=== PATIENT | female | born 1960 | race Caucasian/White ===

== ENCOUNTER → 2021-06-24 15:09 | Outpatient (CLI) | payer OTHER, SELFPAY ==
--- NOTE | 2021-06-24 15:21 | DI.MG.S_ITS ---
BILATERAL DIGITAL SCREENING MAMMOGRAM 3D/2D WITH CAD: 06/24/2021 CLINICAL: Routine screening. Comparison is made to exams dated: 03/25/2020 mammogram, 02/07/2019 mammogram, and 02/07/2018 mammogram - outside facility. The tissue of both breasts is predominantly fatty. Current study was also evaluated with a Computer Aided Detection (CAD) system. No significant masses, calcifications, or other findings are seen in either breast. There has been no significant interval change. IMPRESSION: NEGATIVE There is no mammographic evidence of malignancy. A 1 year screening mammogram is recommended. This exam was interpreted at Station ID: [id number]. NOTE: For mammograms, a report in lay terms will be sent to the patient. Approximately 15% of breast malignancies will not be visualized mammographically. In the management of a palpable breast mass, a negative mammogram must not discourage biopsy of a clinically suspicious lesion. Electronically Signed By: Humberto Agee M.D., jr/rosibel:06/24/2021 15:41:30 letter sent: Normal Exam ACR BI-RADS Category 1: Negative 3341F
== END ==
PROVIDERS: PCP Physician Assistant; Referring Provider Physician Assistant; Visit Provider Physician Assistant
DX: Z12.31 Encounter for screening mammogram for malignant neoplasm of breast (principal)
CPT/HCPCS: 77063; 77067

== ENCOUNTER 2021-07-18 12:35 | Emergency (ER) | payer OTHER, SELFPAY ==
[2021-07-18 12:40] VITALS: BP 177/95; PULSE 84; RESP 16; TEMP 36.7; O2SAT 99; BMI 33.8
[2021-07-18 13:04] LABS: Prothrombin Time 11.1 SECONDS (10.1-12.7)
[2021-07-18 13:06] LABS: Add Manual Diff / Slide Review NO; Basophils Absolute Auto 0 /uL (0-100); Basophils Percent Auto 0.4 % (0-2); Eosinophils Absolute Auto 100 /uL (0-450); Eosinophils Percent Auto 1.5 % (2-4); Hematocrit 39.7 % (36-46); Hemoglobin 13.5 g/dL (12.0-16.0); Lymphocytes Absolute Auto 1700 /uL (1100-4500); Lymphocytes Percent Auto 33.5 % (25-40); Mean Corpuscular HGB Conc 33.9 % (30-36); Mean Corpuscular Hemoglobin 32.8 PG (26-34); Mean Corpuscular Volume 96.6 fL (80-100); Monocytes Absolute Auto 500 /uL (0-900); Monocytes Percent Auto 9.9 % (3-14); Neutrophils Absolute Auto 2800 /uL (1500-7000); Neutrophils Percent Auto 54.7 % (50-75); Platelet Count 273 X10^3/uL (150-400); Red Blood Cell Count 4.12 X10^6/uL (4.0-5.2); Red Cell Distribution Width 13.6 % (11.6-14.8); White Blood Cell Count 5.1 X10^3/uL (4.5-11.0)
[2021-07-18 13:09] LABS: Alanine Aminotransferase 16 IU/L (<35); Albumin 4.5 g/dL (3.5-5.0); Albumin Globulin Ratio 1.2 (1.0-2.8); Alkaline Phosphatase 81 U/L (38-126); Aspartate Aminotransferase 28 IU/L (14-36); Bilirubin Total 0.6 mg/dL (0.2-1.3); Blood Urea Nitrogen 15 mg/dL (7-17); Calcium 9.7 mg/dL (8.4-10.2); Carbon Dioxide 32 mmol/L (22-32); Chloride 102 mmol/L (98-107); Estimated Glomerular Filt Rate > 60.0 mL/min (>60); Globulin 3.8 g/dL (1.7-4.1); Glucose 108 mg/dL (80-110); HEMOLYSIS < 15 (0-50); Potassium 3.6 mmol/L (3.4-5.1); Sodium 140 mmol/L (137-145); Total Protein 8.3 g/dL (6.3-8.2)
[2021-07-18 13:10] VITALS: BP 145/74; PULSE 78; RESP 18; O2SAT 97
[2021-07-18 13:30] VITALS: BP 132/74; PULSE 75; O2SAT 97
[2021-07-18 13:40] LABS: PTT Partial Thromboplastin Tim 29 SECONDS (26.4-36.2)
[2021-07-18 14:00] VITALS: BP 140/70; PULSE 72; O2SAT 97
--- NOTE | 2021-07-18 14:13 | ED.FEMALEGU ---
HPI - Female Genitourinary General Chief complaint: Vaginal Bleeding Stated complaint: Heavy Vaginal Bleeding Time Seen by Provider: 07/18/21 13:29 Source: patient Mode of arrival: Ambulatory Limitations: no limitations History of Present Illness HPI Narrative: This is a 61-year-old female who comes in with complaint of heavy vaginal bleeding. Patient states that 3 weeks ago she had changed from mg of estradiol and 100 mg of progesterone 10 bio identical hormones. She states she started having bleeding which has been increasing. She has been switched to progesterone 400 mg but is going through a tampon every 2 hours. Patient states that she had an ultrasound several years ago with her OBGYN in [place]. She is establishing locally with a Dr. Minor but has not seen them and has an appointment this coming week. Patient states she is supposed to travel in the next week and is hoping to get her bleeding under better control. Patient states she does have a history of Gmxfs-Mlltnawsc-Ribgh. She has felt slightly dizzy after her taking a long walk. She denies other symptoms besides occasional hot flashes. Related Data Previous Rx's Medication Instructions Recorded medroxyprogesterone 10 mg tablet 10 mg PO BID 10 Days #20 tab 07/18/21 Review of Systems Review of Systems ROS Unobtainable: All systems reviewed & are unremarkable except as noted in HPI and below Patient History Substance Use Type: does not use Exam Narrative Exam Narrative: GENERAL: Alert and oriented x three, female in mild distress. HEENT: Head normocephalic, atraumatic, EOMI, pupils reactive, face symmetric, moist mucous membranes NECK: Supple, full range of motion CARDIOVASCULAR: Regular rate and rhythm without murmurs, rubs or gallops. RESPIRATORY: Breath sounds equal bilaterally, no wheezes rales or rhonchi. ABDOMEN: Soft, nontender. Normoactive bowel sounds all 4 quadrants. No guarding or rebound, rigidity, no mass : No CVA tenderness EXTREMITIES: Normal range of motion, no clubbing or edema. Neurovascularly intact NEUROLOGICAL: Cranial nerves II through XII grossly intact. Moving all extremities. Patient ambulates without issue. SKIN: Warm, dry, no petechiae, no rashes or lesions. Initial Vital Signs Initial Vital Signs: Vital Signs Temperature 98.1 F 07/18/21 12:40 Pulse Rate 84 07/18/21 12:40 Respiratory Rate 16 07/18/21 12:40 Blood Pressure 177/95 H 07/18/21 12:40 Pulse Oximetry 99 07/18/21 12:40 Course Orders Ordered: ED Orders 07/18/21 12:49 Complete Blood Count AUTO DIFF Stat Comprehensive Metabolic Panel Stat PT [Prothrombin Time INR] Stat PTT [Partial Thromboplastin Time] Stat Consultations Consultation #1: Dr. Garcia, emergency specialist. We discussed patient politely refused gynecologic ultrasound and plans to have it as an outpatient. She has a prior from 2013 that she brought her with her but none since. We discussed her medication currently. He suggests Provera 10 mg b.i.d. times 7-10 days. If patient seems responsible and willing to follow-up for outpatient ultrasound she does need this but can be done as outpatient. Time: 14:27 Vital Signs Vital signs: Vital Signs - 8 hr 07/18/21 13:10 07/18/21 13:30 07/18/21 14:00 Pulse Rate 78 75 72 Respiratory Rate 18 Blood Pressure 145/74 H 132/74 140/70 Pulse Oximetry 97 97 97 MDM - Female Genitourinary Lab Data Result diagrams: 07/18/21 12:49 07/18/21 12:49 Labs: Lab Results 07/18/21 07/18/21 07/18/21 Range/Units 12:49 12:49 12:49 WBC 5.1 (4.5-11.0) X10^3/uL RBC 4.12 (4.0-5.2) X10^6/uL Hgb 13.5 (12.0-16.0) g/dL Hct 39.7 (36-46) % MCV 96.6 (80-100) fL MCH 32.8 (26-34) PG MCHC 33.9 (30-36) % RDW 13.6 (11.6-14.8) % Plt Count 273 (150-400) X10^3/uL Neut % (Auto) 54.7 (50-75) % Lymph % (Auto) 33.5 (25-40) % Green % (Auto) 9.9 (3-14) % Eos % (Auto) 1.5 L (2-4) % Baso % (Auto) 0.4 (0-2) % Neut # (Auto) 2800 (3583-0046) /uL Lymph # (Auto) 1700 (5695-7534) /uL [place] # (Auto) 500 (0-900) /uL Eos # (Auto) 100 (0-450) /uL Baso # (Auto) 0 (0-100) /uL PT 11.1 (10.1-12.7) SECONDS INR 1.0 (0.9-1.3) APTT (26.4-36.2) SECONDS Sodium 140 (137-145) mmol/L Potassium 3.6 (3.4-5.1) mmol/L Chloride 102 (98-107) mmol/L Carbon Dioxide 32 (22-32) mmol/L BUN 15 (7-17) mg/dL Creatinine 0.79 (0.52-1.04) mg/dL Estimated GFR > 60.0 (>60) mL/min BUN/Creatinine Ratio 19.0 (6-22) Glucose 108 (80-110) mg/dL Calcium 9.7 (8.4-10.2) mg/dL Total Bilirubin 0.6 (0.2-1.3) mg/dL AST 28 (14-36) IU/L ALT 16 (<35) IU/L Alkaline Phosphatase 81 (38-126) U/L Total Protein 8.3 H (6.3-8.2) g/dL Albumin 4.5 (3.5-5.0) g/dL Globulin 3.8 (1.7-4.1) g/dL Albumin/Globulin Ratio 1.2 (1.0-2.8) 07/18/21 Range/Units 12:49 WBC (4.5-11.0) X10^3/uL RBC (4.0-5.2) X10^6/uL Hgb (12.0-16.0) g/dL Hct (36-46) % MCV (80-100) fL MCH (26-34) PG MCHC (30-36) % RDW (11.6-14.8) % Plt Count (150-400) X10^3/uL Neut % (Auto) (50-75) % Lymph % (Auto) (25-40) % Green % (Auto) (3-14) % Eos % (Auto) (2-4) % Baso % (Auto) (0-2) % Neut # (Auto) (5304-8317) /uL Lymph # (Auto) (7760-0906) /uL [place] # (Auto) (0-900) /uL Eos # (Auto) (0-450) /uL Baso # (Auto) (0-100) /uL PT (10.1-12.7) SECONDS INR (0.9-1.3) APTT 29 (26.4-36.2) SECONDS Sodium (137-145) mmol/L Potassium (3.4-5.1) mmol/L Chloride (98-107) mmol/L Carbon Dioxide (22-32) mmol/L BUN (7-17) mg/dL Creatinine (0.52-1.04) mg/dL Estimated GFR (>60) mL/min BUN/Creatinine Ratio (6-22) Glucose (80-110) mg/dL Calcium (8.4-10.2) mg/dL Total Bilirubin (0.2-1.3) mg/dL AST (14-36) IU/L ALT (<35) IU/L Alkaline Phosphatase (38-126) U/L Total Protein (6.3-8.2) g/dL Albumin (3.5-5.0) g/dL Globulin (1.7-4.1) g/dL Albumin/Globulin Ratio (1.0-2.8) MDM Narrative Medical decision making narrative: This is a 61-year-old female with persistent vaginal bleeding that has been heavy since switching from her regular estradiol and progesterone to bioidentical call hormones. Patient has tried progesterone 400 without any improvement. Discussed with OBGYN who recommends pelvic ultrasound which patient had already politely refused and plans to get his outpatient. And also suggested 10 mg for Provera b.i.d. times 7-10 days. Patient is otherwise asymptomatic with stable vital signs and normal hemoglobin. Discharge Plan Departure Patient Disposition: Home Clinical Impression: Vaginal bleeding Instructions: DI for Vaginal Bleeding Activity Restrictions/Additional Instructions: I suspect that your vaginal bleeding is secondary to your recent hormone replacement medication changes but you do pelvic ultrasound to fully evaluate the uterus and the endometrial lining. Follow-up with your new emergency specialist Dr. Minor to arrange this. Referral is included for our local CERTIFIED REGISTERED NURSE PRACTITIONER if you prefer. You may take Provera 10 mg, twice daily for the next 7-10 days. Stop your other hormone replacement. Prescription sent to [email or web address] in [place]. Please return for lightheadedness or passing, chest pain or shortness of breath, persistent vomiting, rapidly worsening bleeding, going through more than 1 better to about an hour, abdominal pain or other new or concerning symptoms. Prescriptions: New medroxyprogesterone 10 mg tablet 10 mg PO BID 10 Days Qty: 20 0RF Referrals: Vicky Ybarra PA-C [Primary Care Provider] - Donte Garcia MD [Physician] -
== END 2021-07-18 14:48 | disposition home or self-care (01) ==
PROVIDERS: Emergency Provider Emergency Medicine; PCP Physician Assistant
DX: N93.9 Abnormal uterine and vaginal bleeding, unspecified (principal)
CPT/HCPCS: 36415; 80053; 85025; 85610; 85730; 99283

== ENCOUNTER → 2022-03-29 09:40 | Outpatient (CLI) | payer OTHER, SELFPAY ==
[2022-03-29 10:41] LABS: Add Manual Diff / Slide Review NO; Basophils Absolute Auto 0 /uL (0-100); Basophils Percent Auto 0.6 % (0-2); Eosinophils Absolute Auto 100 /uL (0-450); Eosinophils Percent Auto 2.2 % (2-4); Hematocrit 40.2 % (36-46); Hemoglobin 13.6 g/dL (12.0-16.0); Lymphocytes Absolute Auto 1500 /uL (1100-4500); Lymphocytes Percent Auto 29.9 % (25-40); Mean Corpuscular HGB Conc 33.7 % (30-36); Mean Corpuscular Volume 97.8 fL (80-100); Monocytes Absolute Auto 500 /uL (0-900); Monocytes Percent Auto 10.6 % (3-14); Neutrophils Absolute Auto 2900 /uL (1500-7000); Neutrophils Percent Auto 56.7 % (50-75); Platelet Count 274 X10^3/uL (150-400); Red Blood Cell Count 4.11 X10^6/uL (4.0-5.2); Red Cell Distribution Width 13.2 % (11.6-14.8); White Blood Cell Count 5.1 X10^3/uL (4.5-11.0)
[2022-03-29 10:58] LABS: Alanine Aminotransferase 16 IU/L (<35); Albumin Globulin Ratio 1.1 (1.0-2.8); Alkaline Phosphatase 89 U/L (38-126); Aspartate Aminotransferase 25 IU/L (14-36); BUN Creatinine Ratio 16.7 (6-22); Bilirubin Total 0.5 mg/dL (0.2-1.3); Blood Urea Nitrogen 12 mg/dL (7-17); Calcium 8.8 mg/dL (8.4-10.2); Carbon Dioxide 28 mmol/L (22-32); Chloride 100 mmol/L (98-107); Cholesterol 258 mg/dL (140-199); Estimated Glomerular Filt Rate > 60 mL/min (>60); Globulin 3.6 g/dL (1.7-4.1); Glucose 104 mg/dL (80-110); HDL Cholesterol 65 mg/dL (40-60); HEMOLYSIS < 15 (0-50); LDL Cholesterol Calculated 152 mg/dL (<100); Sodium 136 mmol/L (137-145); Total Protein 7.6 g/dL (6.3-8.2); Triglycerides 206 mg/dL (35-150)
== END ==
PROVIDERS: PCP Obstetrics & Gynecology; Referring Provider Internal Medicine Cardiovascular Disease; Visit Provider Internal Medicine Cardiovascular Disease
DX: Z13.89 Encounter for screening for other disorder (principal); Z13.1 Encounter for screening for diabetes mellitus; E88.81 Metabolic syndrome and other insulin resistance; E78.5 Hyperlipidemia, unspecified
CPT/HCPCS: 36415; 80053; 80061; 85025

== ENCOUNTER → 2022-07-15 11:42 | Outpatient (CLI) | payer OTHER, SELFPAY ==
--- NOTE | 2022-07-15 | DI.MG.S_ITS ---
BILATERAL DIGITAL SCREENING MAMMOGRAM 3D/2D WITH CAD: 07/15/2022 CLINICAL: Routine screening. Comparison is made to exams dated: 06/24/2021 mammogram - [facility], 03/25/2020 mammogram, and 02/07/2019 mammogram - outside facility. There are scattered areas of fibroglandular density in both breasts (category b / 25%-50% glandular tissue). Current study was also evaluated with a Computer Aided Detection (CAD) system. No significant masses, calcifications, or other findings are seen in either breast. There has been no significant interval change. IMPRESSION: NEGATIVE There is no mammographic evidence of malignancy. A 1 year screening mammogram is recommended. Based on the Tyrer Cuzick model (a risk assessment model) the patient's lifetime risk is 5.3% and her 10 year risk is 2.4%. According to the ACR, ACS, and NCCN guidelines, an annual breast MRI exam along with mammogram is recommended if the patient's lifetime risk is 20% or greater. This exam was interpreted at Station ID: [id number]. NOTE: For mammograms, a report in lay terms will be sent to the patient. Approximately 15% of breast malignancies will not be visualized mammographically. In the management of a palpable breast mass, a negative mammogram must not discourage biopsy of a clinically suspicious lesion. Electronically Signed By: Luis elkins/rosibel:07/15/2022 15:58:47 letter sent: Normal Exam ACR BI-RADS Category 1: Negative 3341F
== END ==
PROVIDERS: PCP Obstetrics & Gynecology; Referring Provider Obstetrics & Gynecology; Visit Provider Obstetrics & Gynecology
DX: Z12.31 Encounter for screening mammogram for malignant neoplasm of breast (principal)
CPT/HCPCS: 77063; 77067

== ENCOUNTER → 2024-04-30 13:35 | Outpatient (CLI) | payer OTHER, SELFPAY | PROVIDERS: PCP Obstetrics & Gynecology; Visit Provider Family Medicine | DX: R30.9 Painful micturition, unspecified (principal) | CPT/HCPCS: 87077; 87086; 87186 ==

== ENCOUNTER 2025-04-02 16:32 | Emergency (ER) | payer OTHER, SELFPAY ==
[2025-04-02] VITALS (28 sets, daily range): BP systolic 119–189; BP diastolic 57–95; PULSE 77–138; RESP 11–33; TEMP 36.7; O2SAT 94–100; BMI 25.4
--- NOTE | 2025-04-02 16:59 | DI.RAD.S_ITS ---
PROCEDURE: XR CHEST 1V INDICATIONS: Chest Pain TECHNIQUE: One view of the chest was acquired. COMPARISON: None. FINDINGS: Surgical changes and devices: None. Lungs and pleura: Lungs are clear. No pleural effusions or pneumothorax. Mediastinum: Mediastinal contours appear normal. Heart size is normal. Bones and chest wall: No suspicious bony lesions. Overlying soft tissues appear unremarkable. IMPRESSION: No acute pulmonary process. Dictated by: Haily Robertson M.D. on 04/02/2025 at 17:53 Approved by: Haily Robertson M.D. on 04/02/2025 at 17:53
--- NOTE | 2025-04-02 17:22 | EKG_ITS ---
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
[2025-04-02 17:29] LABS: Add Manual Diff / Slide Review NO; Hematocrit 40.9 % (36-46); Hemoglobin 13.6 g/dL (12.0-16.0); Lymphocytes Absolute Auto 2300 /uL (1100-4500); Mean Corpuscular HGB Conc 33.3 % (30-36); Mean Corpuscular Hemoglobin 32.6 PG (26-34); Mean Corpuscular Volume 98.0 fL (80-100); Platelet Count 262 X10^3/uL (150-400)
[2025-04-02 17:37] LABS: INR 1.0 (0.9-1.3); Prothrombin Time 11.0 SECONDS (9.4-12.5)
[2025-04-02 17:40] LABS: Alanine Aminotransferase 19 IU/L (<35); Albumin 4.8 g/dL (3.5-5.0); Albumin Globulin Ratio 1.4 (1.0-2.8); Alkaline Phosphatase 78 U/L (38-126); Blood Urea Nitrogen 10 mg/dL (7-17); Calcium 9.4 mg/dL (8.4-10.2); Carbon Dioxide 25 mmol/L (22-32); Chloride 102 mmol/L (98-107); Creatine Kinase 95 U/L (30-135); Estimated Glomerular Filt Rate > 60 mL/min (>60); Globulin 3.4 g/dL (1.7-4.1); Glucose 89 mg/dL (70-99); HEMOLYSIS < 15 (0-50); Lipase 97 U/L (23-300); Magnesium 1.8 mg/dL (1.6-2.3); PTT Partial Thromboplastin Tim 27 SECONDS (25.1-36.5); Potassium 3.5 mmol/L (3.4-5.1); Sodium 137 mmol/L (137-145); Total Protein 8.2 g/dL (6.3-8.2)
[2025-04-02 17:52] LABS: NT-proBNP (BNP-Adult 18+) 357 pg/mL (<125); Troponin I < 0.012 ng/mL (0.01-0.034)
--- NOTE | 2025-04-02 18:24 | ED_ITS ---
HPI - Arrhythmia/Palpitations General Chief Complaint: Arrhythmia/Palpitations Stated Complaint: afif/sob/high bp Time Seen by Provider: 04/02/25 17:28 Source: patient Mode of arrival: Ambulatory History of Present Illness HPI narrative: 64-year-old female history of Mugwz-Bcgjumcko-Fnxdt syndrome status post ablation in 1999 presents this evening with heart palpitation list of breath and on her watch it says atrial fibrillation and so she came in. Patient reports feeling similar to when she had the ablation but not as symptomatic but came in to be evaluated. She denies any active chest pain, shortness of breath, leg pain, leg swelling, headache, dizziness. Other than what is stated 14 point review of systems negative. Related Data Home Medications ?Medication ?Instructions ?Recorded ?Confirmed No Known Home Medications 04/30/2404/14 Previous Rx's ?Medication ?Instructions ?Recorded nitrofurantoin macrocrystal 100 mg 100 mg PO BID #10 c aps 04/30/24 capsule Allergies Allergy/AdvReac Type Severity Reaction Status Date / Time No Known Drug Allergies Allergy Verified 04/02/25 16:54 Review of Systems Review of Systems ROS Unobtainable: All systems reviewed & are unremarkable except as noted in HPI and below Exam Narrative Exam Narrative: GENERAL: [64] year old patient appears stated age. Well-developed patient, in mild distress. HEAD: Atraumatic. Normocephalic. EYES: Pupils equal round and reactive. Extraocular motions intact. No scleral icterus. No injection or drainage. ENT: Nose without bleeding, purulent drainage. Throat without erythema, tonsillar hypertrophy or exudate. Airway patent. NECK: Trachea midline. Non tender CARDIOVASCULAR: IRRegular rate and rhythm without murmurs, gallops, or rubs. RESPIRATORY: Clear to auscultation. Breath sounds equal bilaterally. No wheezes, rales, or rhonchi. GASTROINTESTINAL: Abdomen soft, non-tender, nondistended. EXTREMITIES: No edema or joint tenderness. BACK: Nontender without deformity or crepitance. No flank tenderness. NEURO: AOx3. SKIN: No rash or erythema of visible areas Initial Vital Signs Initial Vital Signs: Vital Signs Temperature 98.0 F 04/02/25 16:53 Pulse Rate 77 04/02/25 16:53 Respiratory Rate 20 04/02/25 16:53 Blood Pressure 189/88 H 04/02/25 16:53 Pulse Oximetry 100 04/02/25 16:53 Oxygen Delivery Method Room Air 04/02/25 16:53 Course Orders Ordered: ED Orders 04/02/25 16:59 XR chest 1V Stat EKG-12 Lead Stat 04/02/25 17:17 Complete Blood Count AUTO DIFF Stat Comprehensive Metabolic Panel Stat Lipase Stat Magnesium Stat NT-proBNP (BNP-Adult 18+) Stat PTT Partial Thromboplastin Alfie Stat Prothrombin Time INR Stat Troponin & CK Cardiac Panel Stat 04/02/25 19:00 Troponin I Stat 04/02/25 20:29 EKG-12 Lead Stat Discontinued Medications Adenosine (Adenosine 6 Mg/2 Ml Vial) 6 mg IV NOW ONE Stop: 04/02/25 18:44 Last Admin: 04/02/25 20:24 Dose: 6 mg Documented By: ASMITA Adenosine (Adenosine 6 Mg/2 Ml Vial) 12 mg IV NOW ONE Stop: 04/02/25 18:47 Last Admin: 04/02/25 20:26 Dose: 12 mg Documented By: ASMITA Adenosine (Adenosine 6 Mg/2 Ml Vial) 12 mg IV NOW ONE Stop: 04/02/25 18:49 Last Admin: 04/02/25 20:41 Dose: Not Given Documented By: ASMITA Aspirin (Aspirin 81 Mg Chew Tab) 324 mg PO NOW ONE Stop: 04/02/25 17:00 Last Admin: 04/02/25 20:41 Dose: Not Given Documented By: ASMITA Metoprolol Tartrate (Metoprolol Tartrate 5 Mg/5 Ml Inj) 2.5 mg IV NOW ONE Stop: 04/02/25 20:42 Last Admin: 04/02/25 20:46 Dose: 2.5 mg Documented By: ASMITA Ondansetron HCl (Ondansetron 4 Mg/2 Ml Inj) 4 mg IV NOW ONE Stop: 04/02/25 20:30 Last Admin: 04/02/25 20:32 Dose: 4 mg Documented By: ASMITA Vital Signs Vital signs: Vital Signs - 8 hr 04/02/25 16:53 04/02/25 18:01 04/02/25 18:30 Temperature 98.0 F Pulse Rate 77 94 H Respiratory Rate 20 20 Blood Pressure 189/88 H 171/74 H Pulse Oximetry 100 97 Oxygen Delivery Method Room Air 04/02/25 18:30 04/02/25 19:00 04/02/25 19:05 Temperature Pulse Rate 89 102 H 94 H Respiratory Rate 18 22 24 Blood Pressure Pulse Oximetry 97 99 99 Oxygen Delivery Method 04/02/25 19:05 04/02/25 19:11 04/02/25 19:11 Temperature Pulse Rate 88 Respiratory Rate 18 Blood Pressure 180/76 H 162/74 H Pulse Oximetry 98 Oxygen Delivery Method 04/02/25 19:15 04/02/25 19:15 04/02/25 19:20 Temperature Pulse Rate 92 H Respiratory Rate 22 Blood Pressure 146/67 H 156/72 H Pulse Oximetry 97 Oxygen Delivery Method 04/02/25 19:20 04/02/25 19:25 04/02/25 19:25 Temperature Pulse Rate 92 H 91 H Respiratory Rate 22 23 Blood Pressure 163/80 H Pulse Oximetry 98 98 Oxygen Delivery Method 04/02/25 19:30 04/02/25 19:30 04/02/25 19:35 Temperature Pulse Rate 91 H Respiratory Rate 20 Blood Pressure 157/70 H 152/70 H Pulse Oximetry 98 Oxygen Delivery Method 04/02/25 19:35 04/02/25 19:40 04/02/25 19:40 Temperature Pulse Rate 89 91 H Respiratory Rate 23 17 Blood Pressure 143/70 H Pulse Oximetry 98 97 Oxygen Delivery Method 04/02/25 19:45 04/02/25 19:45 04/02/25 19:50 Temperature Pulse Rate 90 Respiratory Rate 23 Blood Pressure 139/63 143/65 H Pulse Oximetry 94 Oxygen Delivery Method 04/02/25 19:50 04/02/25 19:55 04/02/25 19:55 Temperature Pulse Rate 90 90 Respiratory Rate 19 31 H Blood Pressure 137/95 H Pulse Oximetry 96 97 Oxygen Delivery Method 04/02/25 20:00 04/02/25 20:00 04/02/25 20:05 Temperature Pulse Rate 89 Respiratory Rate 31 H Blood Pressure 136/65 146/70 H Pulse Oximetry 97 Oxygen Delivery Method 04/02/25 20:05 04/02/25 20:10 04/02/25 20:10 Temperature Pulse Rate 92 H 91 H Respiratory Rate 33 H 21 Blood Pressure 119/57 L Pulse Oximetry 97 97 Oxygen Delivery Method 04/02/25 20:15 04/02/25 20:15 04/02/25 20:20 Temperature Pulse Rate 90 Respiratory Rate 19 Blood Pressure 134/60 125/61 Pulse Oximetry 97 Oxygen Delivery Method 04/02/25 20:20 04/02/25 20:25 04/02/25 20:25 Temperature Pulse Rate 90 104 H Respiratory Rate 19 20 Blood Pressure 154/72 H Pulse Oximetry 97 99 Oxygen Delivery Method 04/02/25 20:27 04/02/25 20:27 04/02/25 20:30 Temperature Pulse Rate 138 H Respiratory Rate 18 Blood Pressure 156/76 H 170/89 H Pulse Oximetry 99 Oxygen Delivery Method 04/02/25 20:30 04/02/25 20:35 04/02/25 20:35 Temperature Pulse Rate 99 H 96 H Respiratory Rate 11 L Blood Pressure 164/86 H Pulse Oximetry 99 98 Oxygen Delivery Method 04/02/25 20:40 04/02/25 20:40 04/02/25 20:55 Temperature Pulse Rate 94 H 85 Respiratory Rate 32 H 21 Blood Pressure 160/73 H Pulse Oximetry 97 98 Oxygen Delivery Method 04/02/25 20:55 Temperature Pulse Rate Respiratory Rate Blood Pressure 165/75 H Pulse Oximetry Oxygen Delivery Method MDM - Arrhythmia/Palpitations Lab Data 04/02/25 17:17 04/02/25 17:17 Labs: Lab Results 04/02/25 04/02/25 Range/Units 17:17 19:00 WBC 6.8 (4.5-11.0) X10^3/uL RBC 4.17 (4.0-5.2) X10^6/uL Hgb 13.6 (12.0-16.0) g/dL Hct 40.9 (36-46) % MCV 98.0 (80-100) fL MCH 32.6 (26-34) PG MCHC 33.3 (30-36) % RDW 14.2 (11.6-14.8) % Plt Count 262 (150-400) X10^3/uL Neut % (Auto) 57.0 (50-75) % Lymph % (Auto) 33.4 (25-40) % [place] % (Auto) 7.9 (3-14) % Eos % (Auto) 1.2 L (2-4) % Baso % (Auto) 0.5 (0-2) % Neut # (Auto) 3900 (6793-5399) /uL Lymph # (Auto) 2300 (1139-1379) /uL [place] # (Auto) 500 (0-900) /uL Eos # (Auto) 100 (0-450) /uL Baso # (Auto) 0 (0-100) /uL PT 11.0 (9.4-12.5) SECONDS INR 1.0 (0.9-1.3) APTT 27 (25.1-36.5) SECONDS Sodium 137 (137-145) mmol/L Potassium 3.5 (3.4-5.1) mmol/L Chloride 102 (98-107) mmol/L Carbon Dioxide 25 (22-32) mmol/L BUN 10 (7-17) mg/dL Creatinine 0.78 (0.52-1.04) mg/dL Estimated GFR > 60 (>60) mL/min BUN/Creatinine Ratio 12.8 (6-22) Glucose 89 (70-99) mg/dL Calcium 9.4 (8.4-10.2) mg/dL Magnesium 1.8 (1.6-2.3) mg/dL Total Bilirubin 0.6 (0.2-1.3) mg/dL AST 34 (14-36) IU/L ALT 19 (<35) IU/L Alkaline Phosphatase 78 (38-126) U/L Total Creatine Kinase 95 (30-135) U/L Troponin I < 0.012 < 0.012 (0.01-0.034) ng/mL NT-Pro-B Natriuret Pep 357 H (<125) pg/mL Total Protein 8.2 (6.3-8.2) g/dL Albumin 4.8 (3.5-5.0) g/dL Globulin 3.4 (1.7-4.1) g/dL Albumin/Globulin Ratio 1.4 (1.0-2.8) Lipase 97 (23-300) U/L Imaging Data Chest x-ray: Radiologist's Impresson: [address] [address] XRay Report Signed Patient: Barbara Tran MR#: [id number] : 1960 Acct:[id number] Age/Sex: 64 / F Date of Service: 04/02/25 Loc: ED Accession Number: [id number] Procedure: XR chest 1V Ordering Provider: Dima Rebolledo MD PROCEDURE: XR CHEST 1V INDICATIONS: Chest Pain TECHNIQUE: One view of the chest was acquired. COMPARISON: None. FINDINGS: Surgical changes and devices: None. Lungs and pleura: Lungs are clear. No pleural effusions or pneumothorax. Mediastinum: Mediastinal contours appear normal. Heart size is normal. Bones and chest wall: No suspicious bony lesions. Overlying soft tissues appear unremarkable. IMPRESSION: No acute pulmonary process. Dictated by: Haily Robertson M.D. on 04/02/2025 at 17:53 Approved by: Haily Robertson M.D. on 04/02/2025 at 17:53 ECG Data Interpretation: Short RP syndrome HR 124 AL undetermined QRS 74 QT 288 MDM Narrative Medical decision making narrative: All lab work, vital signs, nurse triage note, medication list, previous ER visits, and all imaging studies reviewed. Two sets troponin normal BNP 357 WBC 6.8 hemoglobin 13.6 platelets 262 INR 1.0 Na 137 potassium 3.5 chloride 102 CO2 25 BUN 10 creatinine 0.78 glucose 89 magnesium 1.8 LFTs normal. Initial EKG showed short RP syndrome. Case discussed with Dr. Moulton who is actually the patient's recreation coordinator recommended adenosine follow up by [place] and then cardioversion if no response. Patient was given adenosine 6 mg followed by 12 mg for which patient converted on 2nd EKG. Patient was advised to be given Lopressor 2.[address] Nichole and follow up with him as outpatient. Differential diagnosis atria fib flutter WPW NSTEMI STEMI unstable angina Discharge Plan Departure Patient Disposition: Home Clinical Impression: Arrhythmia Instructions: DI for Arrhythmias Activity Restrictions/Additional Instructions: Return with new or worsening symptoms. Please call office for appointment this week. Prescriptions: No Action nitrofurantoin macrocrystal 100 mg capsule 100 mg PO BID Qty: 10 0RF Rx Instructions: must administer with a meal/food No Known Home Medications Referrals: La Parra DO [Primary Care Provider, DECAL TRANSFERRER] Stand Alone Forms: Patient Portal/API
--- NOTE | 2025-04-02 18:37 | PC.NURSE ---
pt began having headache and heart racing today - some slight dizziness and shortness of breath
[2025-04-02 19:40] LABS: Troponin I < 0.012 ng/mL (0.01-0.034)
--- NOTE | 2025-04-02 20:20 | PC.NURSE ---
Room set up for procedure. RT, Dr. Lacy, RN Jessica, ROMÁN Tapia at .
[2025-04-02] MEDS: ADENOSINE 6 MG/2 ML VIAL IV (20:24)
[2025-04-02] MEDS: ADENOSINE 6 MG/2 ML VIAL 12 MG IV (20:26)
--- NOTE | 2025-04-02 20:29 | EKG_ITS ---
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
[2025-04-02] MEDS: ONDANSETRON 4 MG/2 ML INJ IV (20:32)
[2025-04-02] MEDS: METOPROLOL TARTRATE 5 MG/5 ML INJ 2.5 MG IV (20:46)
== END 2025-04-02 21:38 | disposition home or self-care (01) ==
PROVIDERS: Emergency Medicine; Emergency Provider Family Medicine; PCP Obstetrics & Gynecology
DX: I49.9 Cardiac arrhythmia, unspecified (principal)
CPT/HCPCS: 36415; 71045; 80053; 82550; 83690; 83735; 83880; 84484; 85025; 85610; 85730; 93005; 93010; 96374; 96375; 99284; J0153; J2405

== ENCOUNTER 2025-04-03 08:51 | Observation (INO) | payer MEDICARE, OTHER, SELFPAY ==
[2025-04-03] VITALS (27 sets, daily range): BP systolic 131–180; BP diastolic 67–102; PULSE 60–125; RESP 16–28; TEMP 36.6; O2SAT 92–99; BMI 26.8; BMI 26.0
--- NOTE | 2025-04-03 08:55 | EKG_ITS ---
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
[2025-04-03] MEDS: METOPROLOL TARTRATE 5 MG/5 ML INJ 2.5 MG IV (09:26)
[2025-04-03] MEDS: METOPROLOL ER 50 MG TABLET PO (10:52)
[2025-04-03] MEDS: APIXABAN 5 MG TABLET PO (13:25)
[2025-04-03] MEDS: ONDANSETRON 4 MG/2 ML INJ IV (13:25)
--- NOTE | 2025-04-03 16:53 | PM.CN ---
History of Present Illness Consult details Date Patient Seen: 04/03/25 Time Patient Seen: 16:58 Chief complaint: Rapid HR Reason for consult: SVT. Narrative: [age] year old female past medical history of WPW syndrome status post ablation 2000 status post right hip surgery hyperlipidemia admitted to the hospital for sudden onset tachy palpitations associated with anxiety shortness of breath. She had 2 such episodes. Her wrist watch alerted her that she was having atrial fibrillation. She came to the emergency room and underwent continuous telemetry and EKG. I reviewed her EKG that was consistent with long RP syndrome not atrial fibrillation. Adenosine was administered. Patient did not had bradycardia response and had a paradoxical increase heart rate consistent with sinus tachycardia. IV Lopressor was administered. Patient was stable and observed in the emergency room and subsequently discharged home. She returned to the emergency room this morning with another episode of tachycardia. Adenosine was not administered this time however vagal maneuvers were performed. Patient did not convert with the maneuvers however spontaneously converted to sinus rhythm with runs of ectopic atrial rhythm- narrow complex tachycardia. Because of 2 ER visits in 24 hours we decided to admit her to the hospital for observation and start her on beta-blockers. We also discussed the rationale for using either antiplatelet therapy or anticoagulants due to associated stroke risk. Meds Home Medications and Allergies Home Medications ?Medication ?Instructions ?Recorded ?Confirmed ?Type estradiol 0.75 mg/0.75 gram (0.1%) 0.75 mg topical DAILY 04/03/25 04/03/25 History transdermal gel packet ondansetron 4 mg disintegrating 4 mg PO .unknown PRN nausea and 04/03/25 04/03/25 History tablet vomiting progesterone micronized 100 mg 100 mg PO ONCE PM 04/03/25 04/03/25 History capsule rosuvastatin 5 mg tablet 5 mg PO DAILY 04/03/25 04/03/25 History tirzepatide 7.5 mg/0.5 mL 7.5 mg SUBCUT QWEEK 04/03/25 04/03/25 History subcutaneous pen injector (Young) clopidogrel 75 mg tablet (Plavix) 75 mg PO DAILY #30 tabs 04/04/25 Rx metoprolol succinate 25 mg 25 mg PO DAILY #30 tabs 04/04/25 Rx tablet,extended release 24 hr Allergies Allergy/AdvReac Type Severity Reaction Status Date / Time No Known Drug Allergies Allergy Verified 04/02/25 16:54 Review of Systems Review of Systems ROS: Yes All systems reviewed with the patient and are negative except as otherwise documented Cardiovascular Cardiovascular: Reports diaphoresis, Reports palpitations, Reports dyspnea and Reports orthopnea Respiratory Respiratory: Reports dyspnea Endocrine Endocrine: Reports palpitations Exam Vital Signs (past 8 hours): - 04/03/25 09:31 04/03/25 09:36 04/03/25 09:36 Temperature Pulse Rate 95 H 83 Respiratory Rate 21 21 Blood Pressure 157/72 H Pulse Oximetry 98 98 Oxygen Delivery Method Oxygen Flow Rate 04/03/25 09:40 04/03/25 09:40 04/03/25 09:50 Temperature Pulse Rate 92 H Respiratory Rate 16 Blood Pressure 174/79 H 166/83 H Pulse Oximetry 98 Oxygen Delivery Method Oxygen Flow Rate 04/03/25 09:50 04/03/25 09:54 04/03/25 09:55 Temperature Pulse Rate 78 87 Respiratory Rate 23 18 Blood Pressure 136/80 Pulse Oximetry 97 98 Oxygen Delivery Method Oxygen Flow Rate 04/03/25 09:55 04/03/25 10:00 04/03/25 10:00 Temperature Pulse Rate 84 108 H Respiratory Rate 20 17 Blood Pressure 153/102 H Pulse Oximetry 98 97 Oxygen Delivery Method Oxygen Flow Rate 04/03/25 10:30 04/03/25 10:31 04/03/25 10:31 Temperature Pulse Rate 99 H 120 H Respiratory Rate 19 20 Blood Pressure 143/68 H Pulse Oximetry 98 97 Oxygen Delivery Method Oxygen Flow Rate 04/03/25 10:52 04/03/25 10:54 04/03/25 10:54 Temperature Pulse Rate 93 H 87 Respiratory Rate 20 Blood Pressure 164/83 H 164/83 H Pulse Oximetry 98 Oxygen Delivery Method Oxygen Flow Rate 04/03/25 11:00 04/03/25 11:00 04/03/25 11:30 Temperature Pulse Rate 125 H Respiratory Rate 22 Blood Pressure 139/67 131/79 Pulse Oximetry 92 Oxygen Delivery Method Oxygen Flow Rate 04/03/25 11:30 04/03/25 11:41 04/03/25 11:41 Temperature Pulse Rate 98 H 88 Respiratory Rate 17 28 H Blood Pressure 148/67 H Pulse Oximetry 98 96 Oxygen Delivery Method Oxygen Flow Rate 04/03/25 12:00 04/03/25 12:30 04/03/25 12:31 Temperature Pulse Rate 105 H 81 Respiratory Rate 19 20 Blood Pressure 168/73 H Pulse Oximetry 99 99 Oxygen Delivery Method Oxygen Flow Rate 04/03/25 12:31 04/03/25 12:53 04/03/25 13:00 Temperature Pulse Rate 103 H 110 H 110 H Respiratory Rate 26 H 23 Blood Pressure 168/73 H Pulse Oximetry 98 99 Oxygen Delivery Method Oxygen Flow Rate 04/03/25 13:01 04/03/25 13:01 04/03/25 13:30 Temperature Pulse Rate 99 H Respiratory Rate 18 Blood Pressure 153/83 H 171/83 H Pulse Oximetry 98 Oxygen Delivery Method Oxygen Flow Rate 04/03/25 13:30 04/03/25 14:00 04/03/25 14:01 Temperature Pulse Rate 106 H 84 Respiratory Rate 23 16 Blood Pressure 140/85 Pulse Oximetry 99 99 Oxygen Delivery Method Oxygen Flow Rate 04/03/25 14:01 04/03/25 14:23 04/03/25 14:30 Temperature Pulse Rate 80 Respiratory Rate 17 Blood Pressure 153/80 H Pulse Oximetry 99 Oxygen Delivery Method Room Air Oxygen Flow Rate 04/03/25 14:30 04/03/25 14:55 Temperature 97.9 F Pulse Rate 79 92 H Respiratory Rate 21 18 Blood Pressure 160/80 H Pulse Oximetry 99 96 Oxygen Delivery Method Oxygen Flow Rate 0 Oxygen Delivery Method Room Air Oxygen Flow Rate 0 Const General: cooperative and healthy appearing HENMT Head: normal to inspection Mouth: oral mucosae normal Eyes General: appearance normal, both eyes and all related structures Neck Neck: normal visual inspection Chest Chest: normal inspection of the chest Resp Effort & Inspection: normal respiratory effort and able to speak in complete sentences Cardio Palpation: normal PMI Rhythm: regular rhythm and abnormal rhythm Other: runs of rapid heart beat during the auscultation. Objective Labs 04/04/25 05:24 [facility]LY [facility], [facility]–1983 Medical History WPW (Hatqm-Vhfuquskn-Tukvu syndrome) Social History marital status: household members: spouse Tobacco & Substance Use Smoking Status: Former smoker alcohol intake: current Diet and Exercise Type(s) of exercise: walking Assessment & Plan Assessment and plan (1) Paroxysmal SVT (supraventricular tachycardia): Status: Acute Plan Observation Plavix 75 mg daily Metoprolol tartrate 12.5 mg twice daily. patient needs Zio patch evaluation as an outpatient to understand her underlying rhythm. Monitor BMP, Mg and TSH levels. If not performed. Assessment & Plan narrative: 64-year-old female past medical history of WPW syndrome status post ablation 25 years ago came to the emergency 2 episodes of tachy palpitations of paroxysmal supraventricular tachycardia. Patient was hemodynamically stable power was shaken due to fast heart rhythm. 1. SVT: Patient has SVT with no clear evidence of atrial fibrillation. Patient is not a candidate for anticoagulation however antiplatelet therapy reason option given history of strokes in the family. Patient is allergic to aspirin. An alternative antiplatelet therapy can be offered. Telemetry: Shows sinus rhythm with runs of ectopic atrial rhythm, ectopic atrial tachycardia. No evidence of atrial fibrillation. Instruction given to evening nurse to let me know if there are any rhythm changes or disturbances. Time-Based Coding :: [TOTAL MINUTES] spent with patient and on the chart (including review of chart, obtaining history, exam, reviewing outside data, placing orders, documenting exam and treatment plan, and counseling patient) on [DATE].
--- NOTE | 2025-04-03 17:16 | P.HP_ITS ---
History of Present Illness History of Present Illness Date Patient Seen: 04/03/25 Chief complaint: Rapid HR Narrative: Chief complaint: Atrial fibrillation rapid ventricular response in a patient with WPW History of present illness: 64-year-old female with a history of WPW status post ablation in 1999 had increasing palpitations came to the emergency room evaluation findings were significant for atrial fibrillation rapid ventricular response was treated with multiple doses of adenosine and Lopressor. Was asked to admit and consult with her chemicals fermentation operator Dr. Nichole Hemogram and CMP were unremarkable troponin negative and BNP 357 Review of systems: A fever chills rigors No nausea vomiting diarrhea constipation No urinary symptoms No paresthesias no paresis Physical examination Athletic appearing female looking younger than stated age HEENT unremarkable Heart rate and rhythm irregular Lungs clear Assessment and plan: Atrial arrhythmia with induction abnormalities * Stewardship per cardiology Dr. Nichole DVT prophylaxis: * Not indicated Disposition: * Observation may convert to inpatient depending on requirements for patient Time based billing: * 55 minutes were involved in the evaluation of this patient including [id number] evaluation physical examination discussion with Cardiology discussion with ER provider review objective laboratory EKG and imaging findings [facility], [facility] Medical History (Updated 04/03/25 @ 17:11 by Ki Nichole MD) WPW (Bhmkc-Kxkgngcsr-Gpbvr syndrome) Social History marital status: household members: spouse Smoking Status: Former smoker alcohol intake: current Type(s) of exercise: walking Meds Home Medications and Allergies Home Medications ?Medication ?Instructions ?Recorded ?Confirmed ?Type estradiol 0.75 mg/0.75 gram (0.1%) 0.75 mg topical DWAINE LY 04/03/25 04/03/25 History transdermal gel packet ondansetron 4 mg disintegrating 4 mg PO PRN nausea and vomiting 04/03/25 History tablet progesterone micronized 100 mg 100 mg PO ONCE PM 04/0304/03/25 History capsule rosuvastatin 5 mg tablet 5 mg PO DAILY 04/03/2504/03 History tirzepatide 7.5 mg/0.5 mL 7.5 mg SUBCUT QWEEK 04/03/25 04/03/25 History subcutaneous pen injector (Mounjaro) Allergies Allergy/AdvReac Type Severity Reaction Status Date / Time No Known Drug Allergies Allergy Verified 04/02/25 16:54 Exam Vital Signs (past 8 hours): - 04/03/25 09:31 04/03/25 09:36 04/03/25 09:36 Temperature Pulse Rate 95 H 83 Respiratory Rate 21 21 Blood Pressure 157/72 H Pulse Oximetry 98 98 Oxygen Delivery Method Oxygen Flow Rate 04/03/25 09:40 04/03/25 09:40 04/03/25 09:50 Temperature Pulse Rate 92 H Respiratory Rate 16 Blood Pressure 174/79 H 166/83 H Pulse Oximetry 98 Oxygen Delivery Method Oxygen Flow Rate 04/03/25 09:50 04/03/25 09:54 04/03/25 09:55 Temperature Pulse Rate 78 87 Respiratory Rate 23 18 Blood Pressure 136/80 Pulse Oximetry 97 98 Oxygen Delivery Method Oxygen Flow Rate 04/03/25 09:55 04/03/25 10:00 04/03/25 10:00 Temperature Pulse Rate 84 108 H Respiratory Rate 20 17 Blood Pressure 153/102 H Pulse Oximetry 98 97 Oxygen Delivery Method Oxygen Flow Rate 04/03/25 10:30 04/03/25 10:31 04/03/25 10:31 Temperature Pulse Rate 99 H 120 H Respiratory Rate 19 20 Blood Pressure 143/68 H Pulse Oximetry 98 97 Oxygen Delivery Method Oxygen Flow Rate 04/03/25 10:52 04/03/25 10:54 04/03/25 10:54 Temperature Pulse Rate 93 H 87 Respiratory Rate 20 Blood Pressure 164/83 H 164/83 H Pulse Oximetry 98 Oxygen Delivery Method Oxygen Flow Rate 04/03/25 11:00 04/03/25 11:00 04/03/25 11:30 Temperature Pulse Rate 125 H Respiratory Rate 22 Blood Pressure 139/67 131/79 Pulse Oximetry 92 Oxygen Delivery Method Oxygen Flow Rate 04/03/25 11:30 04/03/25 11:41 04/03/25 11:41 Temperature Pulse Rate 98 H 88 Respiratory Rate 17 28 H Blood Pressure 148/67 H Pulse Oximetry 98 96 Oxygen Delivery Method Oxygen Flow Rate 04/03/25 12:00 04/03/25 12:30 04/03/25 12:31 Temperature Pulse Rate 105 H 81 Respiratory Rate 19 20 Blood Pressure 168/73 H Pulse Oximetry 99 99 Oxygen Delivery Method Oxygen Flow Rate 04/03/25 12:31 04/03/25 12:53 04/03/25 13:00 Temperature Pulse Rate 103 H 110 H 110 H Respiratory Rate 26 H 23 Blood Pressure 168/73 H Pulse Oximetry 98 99 Oxygen Delivery Method Oxygen Flow Rate 04/03/25 13:01 04/03/25 13:01 04/03/25 13:30 Temperature Pulse Rate 99 H Respiratory Rate 18 Blood Pressure 153/83 H 171/83 H Pulse Oximetry 98 Oxygen Delivery Method Oxygen Flow Rate 04/03/25 13:30 04/03/25 14:00 04/03/25 14:01 Temperature Pulse Rate 106 H 84 Respiratory Rate 23 16 Blood Pressure 140/85 Pulse Oximetry 99 99 Oxygen Delivery Method Oxygen Flow Rate 04/03/25 14:01 04/03/25 14:23 04/03/25 14:30 Temperature Pulse Rate 80 Respiratory Rate 17 Blood Pressure 153/80 H Pulse Oximetry 99 Oxygen Delivery Method Room Air Oxygen Flow Rate 04/03/25 14:30 04/03/25 14:55 Temperature 97.9 F Pulse Rate 79 92 H Respiratory Rate 21 18 Blood Pressure 160/80 H Pulse Oximetry 99 96 Oxygen Delivery Method Oxygen Flow Rate 0 Oxygen Delivery Method Room Air Oxygen Flow Rate 0 Assessment & Plan Time-Based Coding :: [TOTAL MINUTES] spent with patient and on the chart (including review of chart, obtaining history, exam, reviewing outside data, placing orders, documenting exam and treatment plan, and counseling patient) on [DATE].
[2025-04-03] MEDS: PROGESTERONE, MICRONIZED 100 MG CAPSULE PO (20:39)
[2025-04-03] MEDS: ATORVASTATIN 20 MG TABLET 10 MG PO (20:39)
[2025-04-03] MEDS: ACETAMINOPHEN 325 MG TABLET 650 MG PO (21:14)
[2025-04-03] MEDS: ZOLPIDEM 5 MG TABLET PO (21:14)
[2025-04-04 00:59] VITALS: BP 133/55; PULSE 59; RESP 16; TEMP 36.4; O2SAT 97
[2025-04-04 05:00] VITALS: BP 119/67; PULSE 69; RESP 18; TEMP 36.2; O2SAT 98
[2025-04-04 05:52] LABS: Magnesium 1.7 mg/dL (1.6-2.3)
[2025-04-04 05:53] LABS: Blood Urea Nitrogen 9 mg/dL (7-17); Calcium 9.0 mg/dL (8.4-10.2); Carbon Dioxide 24 mmol/L (22-32); Chloride 105 mmol/L (98-107); Estimated Glomerular Filt Rate > 60 mL/min (>60); Glucose 86 mg/dL (70-99); HEMOLYSIS < 15 (0-50); Potassium 3.7 mmol/L (3.4-5.1); Sodium 136 mmol/L (137-145)
[2025-04-04 06:24] LABS: TSH w/ Reflex to FT4 2.51 uIU/mL (0.47-4.68)
--- NOTE | 2025-04-04 08:40 | CM.DANOTE ---
Initial DCP Assessment Note. Review EMR and PT Interview. Met with patient at bedside to discuss discharge needs.PT is alert x 4 sitting up in chair. No acute distress. Independent. Lives with Life Partner. Payor:??Medicare PCP: ? Summary & Plan:?64 y/o female arrived to ED via EMS c/o rapid HR. Admitted OBS. Dx. A. Fib. Plan: Cardiology consult. Echo. IV and PO medications for HR control. No vaso-actives ggts at this time. Discharge Planning/Care Management CM Discharge Assessment Start: 04/03/25 13:26 Freq: Status: Active Protocol: Document 04/04/25 08:38 SM (Rec: 04/04/25 08:40 SM [id number]) Discharge Planning Assessment Assigned Discharge Chary Walsh RN CM Life Skills Teacher Provider Dr. Parra Insurance Medicare Advance Directives? No History Provided By Patient,Medical Record Has Patient been No admitted in last 30 days? Prior Living House Arrangements Household Members spouse Independent with ADL Yes 's Is patient alert and Yes oriented? Caregiver for No Another Barriers to No Discharge Discharge Plan Home Referrals Initiated None needed Review Status In Process Please Provide Date 04/04/25 Initial DC Assessment Was Performed Next Review Type Continued Stay Review
[2025-04-04 08:51] VITALS: BP 122/59; PULSE 67; RESP 14; TEMP 36.5; O2SAT 98
[2025-04-04 09:23] VITALS: BP 122/59; PULSE 67
[2025-04-04] MEDS: CLOPIDOGREL 75 MG TABLET PO (09:23)
[2025-04-04] MEDS: METOPROLOL ER 25 MG TABLET PO (09:23)
--- NOTE | 2025-04-04 09:37 | PM.DS.1 ---
History of Present Illness History of Present Illness Date Patient Seen: 04/04/25 Time Patient Seen: 09:37 Date of Onset of Symptoms: 04/03/25 Chief complaint: Rapid HR Narrative: Delightful 64 year female with known history of WPW syndrome status post ablation was seen in the emergency room for rapid heart rate along with symptoms of chest discomfort diaphoresis anxiety. Acute coronary syndrome was ruled out however she was having runs of paroxysmal SVT narrow complex tachycardia in the range of 130s to 150s. Valsalva vagal maneuvers were performed which were unsuccessful. Patient was brought into the hospital for observation and telemetry monitoring. Discharge Providers Provider Date of admission: 04/03/25 13:18 Discharge Date: 04/04/25 Primary care physician: La Parra DO Discharge provider: Ki Nichole MD Summary Status at Discharge Cognitive/behavioral status at discharge: oriented Overall status at discharge: patient is back to baseline Time Spent with Patient Time spent: Less than 30 minutes Exam Vital Signs (past 8 hours): - 04/04/25 05:00 04/04/25 08:51 04/04/25 09:23 Temperature 97.2 F L 97.7 F Pulse Rate 69 67 67 Respiratory Rate 18 14 Blood Pressure 119/67 122/59 L 122/59 L Pulse Oximetry 98 98 Oxygen Flow Rate 0 0 Oxygen Delivery Method Room Air Oxygen Flow Rate 0 Const General: cooperative, healthy appearing, comfortable, well developed and well groomed Orientation: alert and oriented x3 HENMT Head: normal to inspection Ears: hearing grossly normal bilaterally Eyes General: appearance normal, both eyes and all related structures Neck Neck: normal visual inspection Chest Chest: normal inspection of the chest Resp Effort & Inspection: normal respiratory effort and able to speak in complete sentences Cardio Palpation: normal PMI Rate: regular rate Rhythm: abnormal rhythm GI Inspection: normal to inspection Back/Spine/Pelvis Back: normal to inspection Skin General: no rashes or lesions noted Neuro General: patient oriented x3 Cognition: normal cognition Speech: speech normal Sensory Exam: no sensory deficits noted Extrem General: normal to inspection Psych Appearance: grossly normal Objective Labs 04/04/25 05:24 Labs: Laboratory Results - last 24 hr 04/04/25 05:24 Sodium 136 L Potassium 3.7 Chloride 105 Carbon Dioxide 24 BUN 9 Creatinine 0.70 Estimated GFR > 60 BUN/Creatinine Ratio 12.9 Glucose 86 Calcium 9.0 Magnesium 1.7 TSH 2.51 PFSH Medical History WPW (Roiib-Ouqgsykum-Danus syndrome) Social History marital status: household members: spouse Smoking Status: Former smoker alcohol intake: current Type(s) of exercise: walking Discharge Assessment & Plan Assessment and Plan Assessment: 1. WPW syndrome 2. Paroxysmal supraventricular tachycardia, ectopic atrial rhythm, atrial tachycardia. 3. Symptomatic palpitations 4. Hyperlipidemia 5. Hypomagnesemia Plan of Treatment: Discharge home on Plavix 75 daily and metoprolol XL 25 daily as recommended by Cardiology. Discharge Plan Discharge Plan Patient Disposition: Home Provider Discharge Comment: Follow up in the office on Monday (Dr. Nichole) Discharge orders & Medications Prescriptions: New metoprolol succinate 25 mg tablet extended release 24 hr 25 mg PO DAILY Qty: 30 2RF clopidogrel [Plavix] 75 mg tablet 75 mg PO DAILY Qty: 30 2RF Continued ondansetron 4 mg tablet,disintegrating 4 mg PO .unknown PRN (Reason: nausea and vomiting) progesterone micronized 100 mg capsule 100 mg PO ONCE PM rosuvastatin 5 mg tablet 5 mg PO DAILY estradiol 0.75 mg/0.75 gram (0.1%) gel in packet 0.75 mg topical DAILY Mounjaro 7.5 mg/0.5 mL pen injector 7.5 mg SUBCUT QWEEK Medication counseling provided by Pharmacist: Yes Follow up/Referrals: Ki Nichole MD [Physician, Cardiology] La Parra DO [Primary Care Provider, MANAGER BUSINESS BANKING] Diet/Activity/Treatments Diet: Diet as Tolerated and Regular Visit Report/Discharge Packet Instructions: Paroxysmal Supraventricular Tachycardia Stand Alone Forms: Patient Portal/API Discharge Data Primary Care Provider: La Parra Attending Provider: Misha Macario Admit Date/Time: 04/03/25 13:18
--- NOTE | 2025-04-04 10:35 | P.DS_ITS ---
History of Present Illness History of Present Illness Chief complaint: Rapid HR Narrative: From H&P: 64-year-old female with a history of WPW status post ablation in 1999 had increasing palpitations came to the emergency room evaluation findings were significant for atrial fibrillation rapid ventricular response was treated with multiple doses of adenosine and Lopressor. Was asked to admit and consult with her head stock transfer clerk Dr. Nichole Hemogram and CMP were unremarkable troponin negative and BNP 357 Discharge Providers Provider Date of admission: 04/03/25 13:18 Discharge Date: 04/04/25 Primary care physician: La Parra DO Discharge provider: Osman Cueto MD Summary Hospital Course Discharge Diagnosis: 1. PSVT 2. WPW 3. HLD 4. Hypomagnesemia Hospital Course: She was admitted and started on oral metoprolol as well as Plavix. She was seen by Cardiology, medications. She did well overnight without recurrent PSVT. She was stable for discharge and we will see Cardiology and outpatient early the following week. Status at Discharge Cognitive/behavioral status at discharge: oriented Functional status at discharge: independent ambulation Overall status at discharge: patient is back to baseline Time Spent with Patient Time spent: Greater than 30 minutes Exam Vital Signs (past 8 hours): - 04/04/25 05:00 04/04/25 08:51 04/04/25 09:23 Temperature 97.2 F L 97.7 F Pulse Rate 69 67 67 Respiratory Rate 18 14 Blood Pressure 119/67 122/59 L 122/59 L Pulse Oximetry 98 98 Oxygen Flow Rate 0 0 Oxygen Delivery Method Room Air Oxygen Flow Rate 0 Narrative Exam Narrative: NAD, alert and oriented. Fluent speech. Lungs are clear, normal rate and effort. Heart is regular, no murmur gallop or rub. Abdomen is soft, non distended. Extremities are free of edema. Objective ECG Impression: Measurements Intervals [place] Rate: 104 P: AL: QRS: 65 QRSD: 72 T: 32 QT: 346 QTc: 454 Interpretive Statements Atrial fibrillation with rapid ventricular response Labs 04/04/25 05:24 Labs: Laboratory Results - last 24 hr 04/04/25 05:24 Sodium 136 L Potassium 3.7 Chloride 105 Carbon Dioxide 24 BUN 9 Creatinine 0.70 Estimated GFR > 60 BUN/Creatinine Ratio 12.9 Glucose 86 Calcium 9.0 Magnesium 1.7 TSH 2.51 [facility] Medical History WPW (Duvce-Basduzngj-Htmbd syndrome) Social History marital status: household members: spouse Smoking Status: Former smoker alcohol intake: current Type(s) of exercise: walking Discharge Assessment & Plan Assessment and Plan Assessment: 1. WPW syndrome 2. Paroxysmal supraventricular tachycardia, ectopic atrial rhythm, atrial tachycardia. 3. Symptomatic palpitations 4. Hyperlipidemia 5. Hypomagnesemia Plan of Treatment: Discharge home on Plavix 75 daily and metoprolol XL 25 daily as recommended by Cardiology. Discharge Plan Discharge Plan Patient Disposition: Home Provider Discharge Comment: Follow up in the office on Monday (Dr. Nichole) Discharge orders & Medications Prescriptions: New metoprolol succinate 25 mg tablet extended release 24 hr 25 mg PO DAILY Qty: 30 2RF clopidogrel [Plavix] 75 mg tablet 75 mg PO DAILY Qty: 30 2RF Continued ondansetron 4 mg tablet,disintegrating 4 mg PO .unknown PRN (Reason: nausea and vomiting) progesterone micronized 100 mg capsule 100 mg PO ONCE PM rosuvastatin 5 mg tablet 5 mg PO DAILY estradiol 0.75 mg/0.75 gram (0.1%) gel in packet 0.75 mg topical DAILY Mounjaro 7.5 mg/0.5 mL pen injector 7.5 mg SUBCUT QWEEK Medication counseling provided by Pharmacist: Yes Follow up/Referrals: Ki Nichole MD [Physician, Cardiology] La Parra DO [Primary Care Provider, SPORTS SPECIALIST] Diet/Activity/Treatments Diet: Diet as Tolerated and Regular Visit Report/Discharge Packet Instructions: Paroxysmal Supraventricular Tachycardia Stand Alone Forms: Patient Portal/API Discharge Data Primary Care Provider: La Parra Attending Provider: Misha Macario Admit Date/Time: 04/03/25 13:18
--- NOTE | 2025-04-04 11:46 | PC.NURSE ---
Pt discharged home at 1126, escorted off floor in wheelchair accompanied by hospital staff. IVs removed, discharge teaching completed including new medications, follow up appointment and worsening symptoms. Per pt, SBP checked before d/c and WNL. Pt left the room with all belongings.
== END 2025-04-04 11:30 | disposition home or self-care (01) ==
LOC: ED 13:17 → AC 13:20
PROVIDERS: Internal Medicine Cardiovascular Disease; Admitting Provider Internal Medicine; Emergency Provider Emergency Medicine; PCP Obstetrics & Gynecology; Referring Provider Emergency Medicine; Visit Provider Internal Medicine
DX: I47.10 Supraventricular tachycardia, unspecified (principal); I45.6 Pre-excitation syndrome; Z87.891 Personal history of nicotine dependence; E78.5 Hyperlipidemia, unspecified; E83.42 Hypomagnesemia; Z79.85 Long-term (current) use of injectable non-insulin antidiabetic drugs
CPT/HCPCS: 36415; 80048; 83735; 84443; 93005; 93010; 96374; 96375; 99284; G0378; J2405